=== PATIENT | male | born 1940 | race Caucasian/White ===

== ENCOUNTER 2018-02-10 10:57 | Inpatient (IN) ==
[2018-02-10 12:18] LABS: Basophils % 0.3 % (0.0-0.8); Eosinophils % 0.3 % (0.00-10.9); Hematocrit 37.1 VOL% (42.0-52.0); Hemoglobin 13.1 GM/DL (14.0-18.0); Immature Granulocytes % 0.3 %; Immature Granulocytes Absolute 0.02 #; Lymphocytes # 1.8 10*3/uL (1.4-4.0); Lymphocytes % 24.1 % (21.2-54.2); Mean Corpuscular HGB Conc 35.3 GM/DL (32-36); Mean Corpuscular Hemoglobin 32 PG (27-34); Mean Corpuscular Volume 90.3 FL (87-102); Mean Platelet Volume 10.5 FL (9.6-12.0); Monocytes # 0.5 10*3/uL (0.11-0.8); Monocytes % 6.2 % (1.7-12.7); Neutrophils # 5.2 10*3/uL (1.4-7.4); Neutrophils % 68.8 % (38.7-73.9); Platelet Count 136 T/CUMM (130-400); Red Blood Count 4.11 MC/CUMM (3.8-5.5); Red Cell Distribution Width 12.9 % (9.3-17.3); White Blood Count 7.5 T/CUMM (4-12)
[2018-02-10 13:07] LABS: Apearance,Urine CLEAR (Clear); Bilirubin,Urine Negative (Negative); Blood, Urine Small mg/dL (Negative); Glucose,Urine (UA) Negative (Negative); Ketones,Urine Negative (Negative); Mucus,Urine Occasional /LPF (Occasional); Nitrite,Urine Negative (Negative); Protein,Urine 30 MG/DL; RBC,Urine 2 /HPF (0-4); Squamous Epithelial Cell,Urine Occasional /HPF (0-10); Urine Color Yellow (Yellow); Urine Specific Gravity 1.018 (1.001-1.035); Urine Urobilinogen < 2.0 EU/DL (0.2-1.0); WBC,Urine 3 /HPF (0-6)
[2018-02-10 13:16] LABS: Band Neutrophils 15 % (0-10); Lymphocytes 19 % (20-55); Segmented Neutrophils 64 % (50-85); Total Cells Counted 100
[2018-02-10 13:17] LABS: Anisocytosis Slight; Platelet Estimate Adequate
[2018-02-10] MEDS ORDERED: LEVOFLOXACIN INJ 500 MG in PREMIX 1 EACH IV STA (13:17)
[2018-02-10] MEDS ORDERED: methylPREDNISolone SOD SUC 125 MG/2 ML VIAL IV STA (13:17)
[2018-02-10 13:30] LABS: Potassium 2.7 MMOL/L (3.5-5.1)
[2018-02-10 13:32] LABS: Calcium 7.7 MG/DL (8.5-10.1)
[2018-02-10 13:33] LABS: Albumin 2.5 G/DL (3.4-5.0)
[2018-02-10 13:38] LABS: Bilirubin,Total 0.4 MG/DL (0.2-1.0); Total Protein 5.6 G/DL (6.4-8.3)
[2018-02-10 14:10] LABS: Lactic Acid 2.6 MMOL/L (0.4-2.0)
[2018-02-10] MEDS ORDERED: POTASSIUM CHLORIDE 20 MEQ TABLET PO STA (14:13)
[2018-02-10] MEDS ORDERED: SODIUM CHLORIDE 0.9% 1,000 ML IV STA (14:14)
[2018-02-10] MEDS ORDERED: ONDANSETRON 4 MG/2 ML VIAL IV PRN (15:23)
[2018-02-10] MEDS ORDERED: ACETAMINOPHEN 325 MG TABLET PO PRN (15:23)
[2018-02-10] MEDS ORDERED: DEXTROSE 50% 25 GM/50 ML VIAL IV PRN (15:23)
[2018-02-10] MEDS ORDERED: GLUCAGON 1 MG VIAL IM PRN (15:23)
[2018-02-10] MEDS ORDERED: SODIUM CHLORIDE 0.9% 2,400 ML IV ONE (15:33)
[2018-02-10] MEDS: LEVOFLOXACIN INJ 750 MG in PREMIX 1 EACH IV SCH (16:15)
[2018-02-10] MEDS: SODIUM CHLORIDE 0.9% 1,000 ML IV SCH (16:31)
[2018-02-10] MEDS: INSULIN REGULAR 100 UNIT/ML SUBCUT SCH ×2 (16:33→20:54)
[2018-02-10] MEDS: PIPERACILLIN/TAZOBACTAM 3,375 MG in SODIUM CHLORIDE 0.9% 100 ML IV SCH (18:13)
[2018-02-10] MEDS: ALBUTEROL 2.5 MG/3 ML NEB RESP TX SCH (19:20)
[2018-02-10] MEDS: guaiFENesin/DM ER 600-30 MG TABLET PO SCH (20:54)
[2018-02-11] MEDS: ALBUTEROL 2.5 MG/3 ML NEB RESP TX SCH ×4 (01:32→19:46)
[2018-02-11] MEDS: PIPERACILLIN/TAZOBACTAM 3,375 MG in SODIUM CHLORIDE 0.9% 100 ML IV SCH ×3 (01:53→17:44)
[2018-02-11 05:31] LABS: Hemoglobin 14.9 GM/DL (14.0-18.0); Immature Granulocytes % 0.8 %; Immature Granulocytes Absolute 0.03 #; Lymphocytes # 0.8 10*3/uL (1.4-4.0); Mean Corpuscular HGB Conc 35.5 GM/DL (32-36); Mean Corpuscular Hemoglobin 31 PG (27-34); Mean Corpuscular Volume 88.6 FL (87-102); Mean Platelet Volume 10.8 FL (9.6-12.0); Monocytes # 0.1 10*3/uL (0.11-0.8); Neutrophils # 3.1 10*3/uL (1.4-7.4); Neutrophils % 77.2 % (38.7-73.9); Platelet Count 137 T/CUMM (130-400); Red Blood Count 4.74 MC/CUMM (3.8-5.5); Red Cell Distribution Width 12.7 % (9.3-17.3)
[2018-02-11 05:47] LABS: Calcium 8.2 MG/DL (8.5-10.1); Osmolality,Calculated 279.7 MOS/KG (273-304); Potassium 2.7 MMOL/L (3.5-5.1)
[2018-02-11 06:00] LABS: Hypochromasia 1+; Ovalocytes Slight; Platelet Estimate Normal
[2018-02-11] MEDS: INSULIN REGULAR 100 UNIT/ML SUBCUT SCH ×4 (11:19→20:28)
[2018-02-11] MEDS: PANTOPRAZOLE 40 MG TABLET PO SCH (11:19)
[2018-02-11] MEDS: guaiFENesin/DM ER 600-30 MG TABLET PO SCH ×2 (11:19→20:25)
[2018-02-11] MEDS ORDERED: POTASSIUM CHLORIDE 20 MEQ TABLET PO ONE ×2 (14:00→17:00)
[2018-02-11] MEDS: SODIUM CHLORIDE 0.9% 1,000 ML IV SCH (20:23)
[2018-02-11] MEDS: LEVOFLOXACIN INJ 750 MG in PREMIX 1 EACH IV SCH (20:24)
[2018-02-12] MEDS: ALBUTEROL 2.5 MG/3 ML NEB RESP TX SCH ×4 (00:40→19:30)
[2018-02-12] MEDS: PIPERACILLIN/TAZOBACTAM 3,375 MG in SODIUM CHLORIDE 0.9% 100 ML IV SCH ×3 (01:51→16:43)
[2018-02-12 06:00] LABS: Basophils % 0.1 % (0.0-0.8); Hematocrit 41.8 VOL% (42.0-52.0); Hemoglobin 15.2 GM/DL (14.0-18.0); Immature Granulocytes % 0.9 %; Immature Granulocytes Absolute 0.09 #; Lymphocytes # 1.3 10*3/uL (1.4-4.0); Lymphocytes % 13.9 % (21.2-54.2); Mean Corpuscular HGB Conc 36.4 GM/DL (32-36); Mean Corpuscular Hemoglobin 32 PG (27-34); Mean Corpuscular Volume 86.9 FL (87-102); Mean Platelet Volume 11.2 FL (9.6-12.0); Monocytes # 0.8 10*3/uL (0.11-0.8); Monocytes % 8.5 % (1.7-12.7); Neutrophils # 7.4 10*3/uL (1.4-7.4); Neutrophils % 76.6 % (38.7-73.9); Platelet Count 176 T/CUMM (130-400); Red Blood Count 4.81 MC/CUMM (3.8-5.5); Red Cell Distribution Width 12.7 % (9.3-17.3); White Blood Count 9.6 T/CUMM (4-12)
[2018-02-12 06:15] LABS: Calcium 8.5 MG/DL (8.5-10.1); Osmolality,Calculated 286.1 MOS/KG (273-304); Potassium 2.8 MMOL/L (3.5-5.1)
[2018-02-12 06:22] LABS: Band Neutrophils 2 % (0-10); Lymphocytes 11 % (20-55); Platelet Estimate Normal; Segmented Neutrophils 84 % (50-85); Total Cells Counted 100
[2018-02-12 06:23] LABS: Hypochromasia 1+; Ovalocytes Slight
[2018-02-12] MEDS: INSULIN REGULAR 100 UNIT/ML SUBCUT SCH ×4 (07:06→21:03)
[2018-02-12] MEDS: PANTOPRAZOLE 40 MG TABLET PO SCH (08:46)
[2018-02-12] MEDS: guaiFENesin/DM ER 600-30 MG TABLET PO SCH ×2 (08:46→20:14)
[2018-02-12] MEDS ORDERED: POTASSIUM CHLORIDE 20 MEQ TABLET PO ONE (09:00)
[2018-02-12] MEDS: LEVOFLOXACIN INJ 750 MG in PREMIX 1 EACH IV SCH (20:51)
[2018-02-13] MEDS: ALBUTEROL 2.5 MG/3 ML NEB RESP TX SCH ×4 (00:20→19:08)
[2018-02-13] MEDS: PIPERACILLIN/TAZOBACTAM 3,375 MG in SODIUM CHLORIDE 0.9% 100 ML IV SCH ×3 (00:28→16:39)
[2018-02-13] MEDS: SODIUM CHLORIDE 0.9% 1,000 ML IV SCH ×2 (06:19→20:44)
[2018-02-13] MEDS: INSULIN REGULAR 100 UNIT/ML SUBCUT SCH ×4 (07:18→21:00)
[2018-02-13] MEDS: guaiFENesin/DM ER 600-30 MG TABLET PO SCH ×2 (09:17→20:30)
[2018-02-13] MEDS: PANTOPRAZOLE 40 MG TABLET PO SCH (09:17)
[2018-02-13] MEDS: LEVOFLOXACIN INJ 750 MG in PREMIX 1 EACH IV SCH (20:45)
[2018-02-14] MEDS: ALBUTEROL 2.5 MG/3 ML NEB RESP TX SCH ×4 (00:20→19:24)
[2018-02-14] MEDS: PIPERACILLIN/TAZOBACTAM 3,375 MG in SODIUM CHLORIDE 0.9% 100 ML IV SCH ×3 (01:28→16:11)
[2018-02-14 06:39] LABS: Calcium 9.2 MG/DL (8.5-10.1); Osmolality,Calculated 289.7 MOS/KG (273-304); Potassium 2.8 MMOL/L (3.5-5.1)
[2018-02-14] MEDS: INSULIN REGULAR 100 UNIT/ML SUBCUT SCH ×4 (09:17→21:46)
[2018-02-14] MEDS: PANTOPRAZOLE 40 MG TABLET PO SCH (09:56)
[2018-02-14] MEDS: POTASSIUM CHLORIDE 20 MEQ TABLET PO SCH ×2 (09:56→21:00)
[2018-02-14] MEDS: guaiFENesin/DM ER 600-30 MG TABLET PO SCH ×2 (09:56→21:00)
[2018-02-14] MEDS: LEVOFLOXACIN INJ 750 MG in PREMIX 1 EACH IV SCH (21:06)
[2018-02-15] MEDS: ALBUTEROL 2.5 MG/3 ML NEB RESP TX SCH ×4 (00:12→19:17)
[2018-02-15] MEDS: PIPERACILLIN/TAZOBACTAM 3,375 MG in SODIUM CHLORIDE 0.9% 100 ML IV SCH ×3 (00:26→16:19)
[2018-02-15 05:42] LABS: Calcium 8.9 MG/DL (8.5-10.1); Osmolality,Calculated 297.3 MOS/KG (273-304); Potassium 3.1 MMOL/L (3.5-5.1)
[2018-02-15] MEDS: SODIUM CHLORIDE 0.9% 1,000 ML IV SCH (05:58)
[2018-02-15] MEDS: INSULIN REGULAR 100 UNIT/ML SUBCUT SCH ×4 (10:20→20:45)
[2018-02-15] MEDS: PANTOPRAZOLE 40 MG TABLET PO SCH (11:00)
[2018-02-15] MEDS: guaiFENesin/DM ER 600-30 MG TABLET PO SCH ×2 (11:00→20:44)
[2018-02-15] MEDS: POTASSIUM CHLORIDE 20 MEQ TABLET PO PRN ×2 (16:20→18:16)
[2018-02-15] MEDS: LEVOFLOXACIN INJ 750 MG in PREMIX 1 EACH IV SCH (20:44)
[2018-02-16] MEDS: ALBUTEROL 2.5 MG/3 ML NEB RESP TX SCH ×4 (00:26→19:23)
[2018-02-16] MEDS: SODIUM CHLORIDE 0.9% 1,000 ML IV SCH (00:54)
[2018-02-16] MEDS: PIPERACILLIN/TAZOBACTAM 3,375 MG in SODIUM CHLORIDE 0.9% 100 ML IV SCH (00:55)
[2018-02-16] MEDS: INSULIN REGULAR 100 UNIT/ML SUBCUT SCH ×4 (08:53→21:20)
[2018-02-16 09:46] LABS: Potassium 3.1 MMOL/L (3.5-5.1)
[2018-02-16] MEDS: guaiFENesin/DM ER 600-30 MG TABLET PO SCH (10:28)
[2018-02-16] MEDS: PANTOPRAZOLE 40 MG TABLET PO SCH (10:28)
[2018-02-16] MEDS: POTASSIUM CHLORIDE 20 MEQ TABLET PO PRN ×4 (10:29→18:21)
[2018-02-16] MEDS: CARVEDILOL 12.5 MG TABLET PO SCH (16:52)
[2018-02-16] MEDS: MEMANTINE 10 MG TABLET PO SCH (21:18)
[2018-02-16] MEDS: ASPIRIN CHEW 81 MG TABLET PO SCH (21:18)
[2018-02-16] MEDS: LEVOFLOXACIN INJ 750 MG in PREMIX 1 EACH IV SCH (21:18)
[2018-02-17] MEDS: ALBUTEROL 2.5 MG/3 ML NEB RESP TX SCH ×4 (00:07→18:55)
[2018-02-17] MEDS: SODIUM CHLORIDE 0.9% 1,000 ML IV SCH (05:07)
[2018-02-17 05:23] LABS: Calcium 8.7 MG/DL (8.5-10.1); Osmolality,Calculated 293.4 MOS/KG (273-304); Potassium 3.6 MMOL/L (3.5-5.1)
[2018-02-17] MEDS: INSULIN REGULAR 100 UNIT/ML SUBCUT SCH ×4 (08:38→21:05)
[2018-02-17] MEDS: metFORMIN 500 MG TABLET PO SCH (09:23)
[2018-02-17] MEDS: ROSUVASTATIN 10 MG TABLET PO SCH (09:23)
[2018-02-17] MEDS: CARVEDILOL 12.5 MG TABLET PO SCH ×2 (09:23→16:56)
[2018-02-17] MEDS: PANTOPRAZOLE 40 MG TABLET PO SCH (09:23)
[2018-02-17] MEDS: amLODIPine 5 MG TABLET PO SCH (09:23)
[2018-02-17] MEDS: ALLOPURINOL 300 MG TABLET PO SCH (09:23)
[2018-02-17] MEDS: DONEPEZIL 10 MG TABLET PO SCH (09:23)
[2018-02-17] MEDS: MEMANTINE 10 MG TABLET PO SCH ×2 (09:23→21:05)
[2018-02-17] MEDS: QUINAPRIL 20 MG TABLET PO SCH (09:24)
[2018-02-17] MEDS: SODIUM CHLORIDE 0.45% 1,000 ML IV SCH (09:28)
[2018-02-17] MEDS: DOCUSATE SODIUM 100 MG CAPSULE PO SCH (21:05)
[2018-02-17] MEDS: ASPIRIN CHEW 81 MG TABLET PO SCH (21:05)
[2018-02-18] MEDS: ALBUTEROL 2.5 MG/3 ML NEB RESP TX SCH ×4 (00:27→19:08)
[2018-02-18] MEDS: INSULIN REGULAR 100 UNIT/ML SUBCUT SCH ×4 (07:52→20:44)
[2018-02-18] MEDS: DONEPEZIL 10 MG TABLET PO SCH (08:54)
[2018-02-18] MEDS: ROSUVASTATIN 10 MG TABLET PO SCH (08:54)
[2018-02-18] MEDS: amLODIPine 5 MG TABLET PO SCH (08:54)
[2018-02-18] MEDS: QUINAPRIL 20 MG TABLET PO SCH (08:54)
[2018-02-18] MEDS: PANTOPRAZOLE 40 MG TABLET PO SCH (08:54)
[2018-02-18] MEDS: ALLOPURINOL 300 MG TABLET PO SCH (08:54)
[2018-02-18] MEDS: CARVEDILOL 12.5 MG TABLET PO SCH ×2 (08:54→16:36)
[2018-02-18] MEDS: MEMANTINE 10 MG TABLET PO SCH ×2 (08:54→20:43)
[2018-02-18] MEDS: metFORMIN 500 MG TABLET PO SCH (08:54)
[2018-02-18 10:12] LABS: Basophils % 0.2 % (0.0-0.8); Eosinophils # 0.2 10*3/uL (0.0-0.87); Hematocrit 41.3 VOL% (42.0-52.0); Immature Granulocytes % 0.4 %; Immature Granulocytes Absolute 0.04 #; Lymphocytes # 2.4 10*3/uL (1.4-4.0); Lymphocytes % 26.1 % (21.2-54.2); Mean Corpuscular HGB Conc 33.9 GM/DL (32-36); Mean Corpuscular Hemoglobin 31 PG (27-34); Mean Corpuscular Volume 92.4 FL (87-102); Mean Platelet Volume 10.3 FL (9.6-12.0); Monocytes # 0.9 10*3/uL (0.11-0.8); Monocytes % 9.9 % (1.7-12.7); Neutrophils # 5.6 10*3/uL (1.4-7.4); Neutrophils % 61.4 % (38.7-73.9); Platelet Count 291 T/CUMM (130-400); Red Blood Count 4.47 MC/CUMM (3.8-5.5); Red Cell Distribution Width 13.2 % (9.3-17.3); White Blood Count 9.1 T/CUMM (4-12)
[2018-02-18] MEDS: LEVOFLOXACIN 750 MG TABLET PO SCH (11:21)
[2018-02-18] MEDS ORDERED: TUBERCULIN SKIN TEST 0.1 ML SYRINGE INTRADERM ONE (16:00)
[2018-02-18] MEDS: SODIUM CHLORIDE 0.45% 1,000 ML IV SCH (17:24)
[2018-02-18] MEDS: ASPIRIN CHEW 81 MG TABLET PO SCH (20:43)
[2018-02-18] MEDS: DOCUSATE SODIUM 100 MG CAPSULE PO SCH (20:43)
[2018-02-19] MEDS: ALBUTEROL 2.5 MG/3 ML NEB RESP TX SCH ×3 (00:36→17:39)
[2018-02-19] MEDS: QUINAPRIL 20 MG TABLET PO SCH (09:35)
[2018-02-19] MEDS: metFORMIN 500 MG TABLET PO SCH (09:39)
[2018-02-19] MEDS: amLODIPine 5 MG TABLET PO SCH (09:39)
[2018-02-19] MEDS: PANTOPRAZOLE 40 MG TABLET PO SCH (09:39)
[2018-02-19] MEDS: MEMANTINE 10 MG TABLET PO SCH (09:40)
[2018-02-19] MEDS: ROSUVASTATIN 10 MG TABLET PO SCH (09:40)
[2018-02-19] MEDS: DONEPEZIL 10 MG TABLET PO SCH (09:40)
[2018-02-19] MEDS: LEVOFLOXACIN 750 MG TABLET PO SCH (09:40)
[2018-02-19] MEDS: ALLOPURINOL 300 MG TABLET PO SCH (09:40)
[2018-02-19] MEDS: CARVEDILOL 12.5 MG TABLET PO SCH ×2 (09:40→17:27)
[2018-02-19] MEDS: INSULIN REGULAR 100 UNIT/ML SUBCUT SCH ×3 (09:41→17:23)
[2018-02-19 16:11] VITALS: BP 128/84
[2018-02-19] MEDS: SODIUM CHLORIDE 0.45% 1,000 ML IV SCH (17:24)
== END 2018-02-19 18:30 | disposition swing bed (61) | DRG 178 ==
LOC: EDBD → EDUNIT# → N.ED 10:57 → SUATTDRO 15:23 → N.EDINP 15:23 → N.2E 19:48
PROVIDERS: ADMIT Internal Medicine Geriatric Medicine; ATTEND Internal Medicine